=== PATIENT | female | born 1990 | race Caucasian/White ===

== ENCOUNTER 2021-04-29 15:30 | Emergency (ER) | payer OTHER ==
[~2021-04-29] VITALS: Wt 72.6 kg
== END 2021-04-29 16:59 | disposition home or self-care (01) ==
LOC: ED 15:30
DX: S90.31XA Contusion of right foot, initial encounter (principal); W23.0XXA Caught, crushed, jammed, or pinched between moving objects, initial encounter; Y93.89 Activity, other specified; Y92.89 Other specified places as the place of occurrence of the external cause; Y99.8 Other external cause status